=== PATIENT | female | born 1995 | race Caucasian/White ===

== ENCOUNTER 2016-07-16 08:51 | Emergency (ER) | payer OTHER ==
[2016-07-16 09:12] VITALS: BP 145/95
--- NOTE | 2016-07-16 09:49 | UC ---
Nathalia Quezada Matthew, scribed for Phillip Velazquez MD on 07/16/16 at 0920 . Complaint Female HPI - HPI Summary HPI Summary: A 20 y/o female presents to the ED for STD testing. The patient had unprotected intercourse two weeks ago. To her knowledge her partner did not have an STD. However, her friends recently tested positive for chlamydia, which made her nervous and caused her to present today. As of now the patient is asymptomatic denying pain, vaginal bleeding, and vaginal discharge. The patient is on control and does not smoke. No PMHx or FHx. - History Of Current Complaint Chief Complaint: UCGU Stated Complaint: STD TESTING Time Seen by Provider: 07/16/16 08:52 Hx Obtained From: Patient Hx Last Menstrual Period: now ?: No Severity Currently: None Associated Signs And Symptoms: Positive: Negative - Allergies/Home Medications Allergies/Adverse Reactions: Allergies Allergy/AdvReac Type Severity Reaction Status Date / Time No Known Allergies Allergy Verified 07/16/16 09:01 Home Medications: Home Medications Drospirenone-Ethinyl Estradiol [Ocella 3-0.03 mg] 1 tab PO DAILY 07/16/16 [ History Confirmed 07/16/16] PMH/Surg Hx/FS Hx/Imm Hx Previously Healthy: Yes Respiratory History Of: Denies: Asthma - Surgical History Surgical History: Yes Surgery Procedure, Year, and Place: wisdom tooth extraction 03/29/16 - Family History Known Family History: Positive: None - The patient reports that she does not have any FHx - Social History Alcohol Use: Weekly Alcohol Amount: 6 drinks per week Substance Use Type: Marijuana Substance Use Comment - Amount & Last Used: bi weekly Smoking Status (MU): Never Smoked Tobacco - Immunization History Most Recent Influenza Vaccination: none Most Recent Tetanus Shot: utd Review of Systems Constitutional: Negative Skin: Negative Eyes: Negative ENT: Negative Respiratory: Negative Cardiovascular: Negative Gastrointestinal: Negative Genitourinary: Negative Motor: Negative Neurovascular: Negative Musculoskeletal: Negative Neurological: Negative Psychological: Negative All Other Systems Reviewed And Are Negative: Yes Physical Exam Triage Information Reviewed: Yes Vital Signs: Initial Vital Signs Temp 97.8 F 07/16/16 09:04 Pulse 83 07/16/16 09:04 Resp 18 07/16/16 09:04 BP 145/95 07/16/16 09:04 Pulse Ox 97 07/16/16 09:04 Vital Signs Reviewed: Yes - Additional Comments VITAL SIGNS: Reviewed. GENERAL: Patient is a well developed and nourished female who is lying comfortable in the stretcher. Patient is not in any acute respiratory distress. HEAD AND FACE: Normocephalic EYES: PERRLA, EOMI x 2. EARS: Hearing grossly intact. MOUTH: Oropharynx within normal limits. NECK: Supple, trachea is midline, no adenopathy, no JVD, no carotid bruit. CHEST: Symmetric, no tenderness at palpation LUNGS: Clear to auscultation bilaterally. No wheezing or crackles. CVS: Regular rate and rhythm, S1 and S2 present, no murmurs or gallops appreciated. ABDOMEN: Soft, non-tender. Bowel sounds are normal. No abdominal abnormal pulsations. EXTREMITIES: FROM in all major joints, no edema, no cyanosis or clubbing. NEURO: Alert and oriented x 3. No acute neurological deficits. Speech is normal and follows commands. 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 External genitalia: within normal limits. No rashes, lesions or ecchymosis. Speculum exam: vaginal tran with no lesions, masses, or rashes. Cervix normal. No CMTs. No adnexal masses. All cultures were collected and send to the lab. Complaint Female Dx - Course Course Of Treatment: A 20 y/o female presents to the ED for STD testing. The patient had unprotected intercourse two weeks ago. To her knowledge her partner did not have an STD. However, her friends recently tested positive for chlamydia , which made her nervous and caused her to present today. As of now the patient is asymptomatic denying pain, vaginal bleeding, and vaginal discharge. The patient is on control and does not smoke. No PMHx or FHx. The patient has no vaginal discharge or bleeding. She has no other c/o. The only reason she came to was for a STD screening test, but she is asymptomatic. In the PE there was no vaginal discharge, bleeding, or vaginal abnormalities. Cultures were sent from [facility] and chlamydia as well as an affirm test. Patient will follow- up with the result with her PCP or will call the UC. Since the patient continues to be asymptomatic, hemodynamically stable, she will be discharged home with PCP follow-up or return to the UC. I discussed all the findings and test results with the patient. Patient was instructed to return to the emergency room immediately if any of the symptoms return or worsens. Plan of care was discussed with the patient and understands and agrees. All questions were answered at patient satisfaction. There were no further complaints or concerns. Lung exam before discharge: CTA B/L. Good air exchange. No wheezing or crackles heard. CVS: S1 and S2 present. No murmurs appreciated. Patient is alert and oriented x 3. Patient is hemodynamically stable. 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 The documentation as recorded by the Nathalia mackey Matthew accurately reflects the service I personally performed and the decisions made by me, Phillip Velazquez MD.
--- NOTE | 2016-07-17 19:37 | UC ---
Progress - Progress Note Progress Note: Spoke with Patient on the phone after she called for her lab reports---Patient is positive for Gardenerella---Flagyl 500mg po BID for 7 days---pt understands not to drink alcohol until rx is completed plus 2 more days---Esperanza Holder
== END 2016-07-16 09:32 | disposition home or self-care (01) ==
LOC: UCEAST 08:51
DX: Z11.3 Encounter for screening for infections with a predominantly sexual mode of transmission (principal)
CPT/HCPCS: 87070; 87480; 87491; 87510; 87591; 87661; 99202; G0463